=== PATIENT | female | born 2000 | race Caucasian/White ===

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

== ENCOUNTER 2021-05-09 07:25 | Emergency (ER) | payer BC ==
[~2021-05-09] VITALS: Ht 165.1 cm; Wt 61.2 kg
[~2021-05-09 07:25] MED LIST: METR250T PO
[2021-05-09] MEDS ORDERED: LIDOCAINE HCL 1% 20 ML VIAL TP ONE (07:45)
--- NOTE | 2021-05-09 07:49 | NUR ---
DR CHERRY AT BEDSIDE FOR EVAL.
[2021-05-09 08:31] VITALS: BP 106/64
== END 2021-05-09 08:31 | disposition home or self-care (01) ==
LOC: ER 07:25
DX: S61.307A Unspecified open wound of left little finger with damage to nail, initial encounter (principal); X58.XXXA Exposure to other specified factors, initial encounter; Y92.89 Other specified places as the place of occurrence of the external cause; E05.00 Thyrotoxicosis with diffuse goiter without thyrotoxic crisis or storm
CPT/HCPCS: 11730; 99283; J3490; A4663